=== PATIENT | male | born 1950 | race Caucasian/White ===

== ENCOUNTER → 2017-08-31 | Day surgery (SDC) | payer OTHER ==
[~2017-08-31] VITALS: Ht 165.1 cm; Wt 62.1 kg
[~2017-08-31] MED LIST: ASPIRIN325 MG PO; LIPITOR40 MG PO; PLAVIX75 MG PO
== END | disposition home or self-care (01) ==
LOC: SDC 05:36
PROC: 08J0XZZ Inspection of Right Eye, External Approach (ICD-10-PCS; principal; 2017-08-31)
DX: H27.131 Posterior dislocation of lens, right eye (principal); Z53.09 Procedure and treatment not carried out because of other contraindication
CPT/HCPCS: J2250